=== PATIENT | male | born 1975 | race African-American/Black ===

== ENCOUNTER 2020-07-03 20:57 | Inpatient (IN) ==
[2020-07-03] MEDS ORDERED: ATROVENT HFA INHALER (PER PUFF-WITH SPACER) IH STA (21:02)
[2020-07-03] MEDS ORDERED: VENTOLIN HFA (PER PUFF-WITH SPACER) IH STA (21:02)
[2020-07-03] MEDS ORDERED: DECADRON IM STA (21:02)
[2020-07-03 21:32] LABS: BASOPHILS # (AUTO) 0.1 K/uL (0-0.2); BASOPHILS % (AUTO) 0.7 % (0.0-3.0); EOSINOPHILS % (AUTO) 0.1 % (0.0-7.0); HEMATOCRIT 50.3 % (42.0-52.0); HEMOGLOBIN 17.3 g/dl (14.0-18.0); IMMATURE GRANULOCYTE # (AUTO) 0.1 (0.0-1.0); IMMATURE GRANULOCYTE % (AUTO) 1.2 % (0.0-5.0); LYMPHOCYTES % (AUTO) 29.1 (10.0-50.0); MEAN CORPUSCULAR HEMOGLOBIN 29.7 pg (27.0-31.0); MEAN CORPUSCULAR HGB CONC 34.4 (31.8-35.4); MEAN CORPUSCULAR VOLUME 86.4 fl (80.0-94.0); MONOCYTES # (AUTO) 0.9 K/uL (0.4-2.0); MONOCYTES % (AUTO) 12.4 (0-10); NEUTROPHILS # (AUTO) 3.9 K/ul (2.0-6.9); NEUTROPHILS % (AUTO) 56.5 % (42.2-75.2); PLATELET COUNT 227 10^3/uL (140-440); RDW COEFFICIENT OF VARIATION 13.6 % (11.6-14.8); RED BLOOD COUNT 5.82 10^6/ul (4.70-6.10); WHITE BLOOD COUNT 6.94 K/ul (4.2-10.2)
--- NOTE | 2020-07-03 21:44 | DI ---
EXAM: PA and lateral views of the chest HISTORY: Cough COMPARISON: Chest Xray from 06/11/2020 FINDINGS: There are some increasing lung markings in the left base compared to earlier. There is johanna e mild increasing vascular congestion. Cardiac and mediastinal silhouettes show no acute abnormality. No acute osseous or soft tissue abnormalities. IMPRESSION: 1. Probable developing infiltrate in the left base. 2. Vascular congestion.
[2020-07-03 21:46] LABS: ALANINE AMINOTRANSFERASE 90.2 U/L (0-50); ALBUMIN 4.62 g/dL (3.5-5.0); ALKALINE PHOSPHATASE 107.5 U/L (38-126); ASPARTATE AMINO TRANSFERASE 62.7 U/L (17-59); BILIRUBIN,TOTAL 0.44 mg/dL (0.2-1.3); BLOOD UREA NITROGEN 16.6 mg/dL (9-20); CALCIUM 9.2 mg/dL (8.4-10.2); CARBON DIOXIDE 27.2 mmol/L (22-30.0); CHLORIDE 101.4 mmol/L (98-107); CREATINE KINASE 288.9 U/L (55-170); CREATININE 1.38 mg/dL (0.60-1.10); GLUCOSE 186.2 mg/dL (74-106); POTASSIUM 3.83 mmol/L (3.5-5.1); SODIUM 139.2 mmol/L (134.5-145); TOTAL PROTEIN 8.89 g/dL (6.3-8.2)
[2020-07-03 21:48] LABS: ABG PH 7.41 (7.35-7.45)
[2020-07-03] MEDS ORDERED: ROCEPHIN 1 GM/50 ML D5W 1 GM/50 ML BAG IV STA (21:50)
[2020-07-03 21:58] LABS: NT-PROBNP 22.6 pg/mL (0-124); TROPONIN I 0.017 ng/ml (0.0000-0.120)
[2020-07-03 22:01] LABS: CREATINE KINASE MB 1.97 ng/ml (0.0-2.38)
--- NOTE | 2020-07-03 22:25 | ED.PDOC ---
General ED Provider: Dr. JOHNNY CASTELLANOS Chief Complaint: Respiratory Complaint Stated Complaint: eagle had covid but not i am coughing up hathaway sputum and some chest congestion and cough Time Seen by Provider: 07/03/20 21:09 Mode of Arrival: Walk-In Information Source: Patient Primary Care Provider: ARMAND ART Nursing and Triage Documentation Reviewed and Agree: Yes Does patient meet sepsis criteria?: No System Inflammatory Response Syndrome: Not Applicable Sepsis Protocol: For patient's 13 years and over: Temp is 96.8 and below OR 101 and greater Pulse >90 BPM Resp >20/minute Acutely Altered Mental Status Are patient's symptoms suggestive of a new infection, such as: -Pneumonia -Skin, Soft Tissue -Endocarditis -UTI -Bone, Joint Infection -Implantable Device -Acute Abdominal Infection -Wound Infection -Meningitis -Blood Stream Catheter Infection -Unknown Respiratory Complaint Exam Respiratory Complaint/Exam Onset/Duration: several days Symptoms Are: Still present Timing: Intermittent Initial Severity: Mild Current Severity: Moderate Location: Chest Character: Reports Productive cough Aggravating: Reports URI Alleviating: Reports Bronchodilators Associated Signs and Symptoms: Reports Dyspnea, Chest pain and URI History of Healthcare-Acquired Pneumonia: No Home Oxygen Use: No Recent Stress Test: No Recent Echo/LV Function: No Current Antibiotic Use: No Current Asthma Medication Use: No Respiratory Distress: None Inadequate Respiratory Effort: No Dysphagia Present: No Stridor Present: No JVD Present: No Accessory Muscle Use: No Retractions: Not Present Diminished Breath Sounds: No Sinus Tenderness: None Grunting Respirations: No Kussmaul Respirations: No Differential Diagnoses: Pneumonia Non-Traumatic Chest Pain Syncope: EKG Performed Review of Systems Review Of Systems Constitutional: Reports No symptoms Eyes: Reports No symptoms Ears, Nose, Mouth, Throat: Reports No symptoms Respiratory: Reports Cough and Short of air Cardiac: Reports No symptoms GI: Reports No symptoms : Reports No symptoms Musculoskeletal: Reports No symptoms Skin: Reports No symptoms Neurological: Reports No symptoms Endocrine: Reports No symptoms Hematologic/Lymphatic: Reports No symptoms All Other Systems: Reviewed and Negative [facility] Social History Smoking and tobacco status: Former smoker Physical Exam Physical Exam Appearance: Reports Well-appearing Ill-appearing: None Pain Distress: None Eyes: Reports SHRAVAN, EOMI and Conjunctiva clear ENT: Reports Ears normal, Nose normal and Oropharynx normal Neck: Supple Respiratory: Reports Airway patent, Breath sounds equal, Crackles and Rhonchi Cardiovascular: Reports RRR, Pulses normal, No rub and No murmur GI/: Reports Soft, Nontender, No masses and Bowel sounds normal Musculoskeletal: Reports Normal strength, ROM intact, No edema and No calf tenderness Skin: Reports Warm, Dry and Normal color Neurological: Reports Sensation intact, Motor intact, Reflexes intact, Cranial nerves intact, Alert and Oriented Psychiatric: Reports Affect appropriate and Mood appropriate Interpretation Radiology Interpretation Radiology Interpretation By: Radiologist Radiology Results: Positive Exam Interpreted: CXR EKG Interpretation Time of EKG #1: 22:24 Rate: Normal Rhythm: Sinus Ectopy: None Chest [place]: NL ST Segment: Normal Interpretation: nsr Re-Evaluation Re-Evaluation Time of Re-Evaluation: 22:24 Status: Improved Vital Signs Stable: Yes Pain Level: 0 Appearance: NAD Lungs: Clear Skin: Warm and Dry Neuro: Alert and Oriented X3 CV: RRR Critical Care Note Critical Care Note Total Critical Care Time (mins): 0 Course Course Hematology/Chemistry: 07/03/20 21:23 07/03/20 21:23 Orders, Labs, Meds: Lab Review 07/03/20 07/03/20 07/03/20 21:15 21:23 21:23 WBC 6.94 RBC 5.82 Hgb 17.3 Hct 50.3 MCV 86.4 MCH 29.7 MCHC 34.4 RDW Coeff of Tejal 13.6 Plt Count 227 Immature Gran % (Auto) 1.2 Neut % (Auto) 56.5 Lymph % (Auto) 29.1 Drew % (Auto) 12.4 H Eos % (Auto) 0.1 Baso % (Auto) 0.7 Neut # (Auto) 3.9 Lymph # (Auto) 2.0 Drew # (Auto) 0.9 Eos # (Auto) 0.0 Baso # (Auto) 0.1 Immature Gran # (Auto) 0.1 Puncture Site Lr Base Excess 0.1 O2 Saturation 95.5 ABG pH 7.41 ABG pCO2 39.0 ABG pO2 78.0 L ABG HCO3 24.7 ABG Total CO2 25.9 H Matthew Test + Hemoglobin 0.7 Oxyhemoglobin 94.4 L Carboxyhemoglobin 2.5 H Total Hemoglobin 16.0 FiO2 % 21.0 Sodium 139.2 Potassium 3.83 Chloride 101.4 Carbon Dioxide 27.2 Anion Gap 14.43 BUN 16.6 Creatinine 1.38 H Estimated GFR (MDRD) 68.00 BUN/Creatinine Ratio 12.02 Glucose 186.2 H Lactic Acid Calcium 9.20 Ferritin 458.00 Total Bilirubin 0.44 AST 62.7 H ALT 90.2 H Alkaline Phosphatase 107.5 Total Creatine Kinase 288.9 H CK-MB (CK-2) 1.970 CK-MB (CK-2) % 0.6800 Troponin I 0.017 NT-Pro-B Natriuret Pep 22.600 Total Protein 8.89 H Albumin 4.62 Globulin 4.27 Albumin/Globulin Ratio 1.08 Procalcitonin D-Dimer Adenovirus (PCR) B. pertussis DNA (PCR) B.parapertussis DNA PCR C. pneumoniae DNA (PCR) Coronavirus OC43 (PCR) Coronavirus HKU1 (PCR) Coronavirus 229E (PCR) Coronavirus NL63 (PCR) Human Metapneumovir PCR Influenza Type A (PCR) Influenza B (RT-PCR) M. pneumoniae (PCR) Parainfluenza 1 (PCR) Parainfluenza 2 (PCR) Parainfluenza 3 (PCR) Parainfluenza 4 (PCR) RSV (PCR) Entero/Rhino (PCR) SARS-CoV-2 (PCR) 07/03/20 07/03/20 07/03/20 21:23 21:23 21:23 WBC RBC Hgb Hct MCV MCH MCHC RDW Coeff of Tejal Plt Count Immature Gran % (Auto) Neut % (Auto) Lymph % (Auto) Drew % (Auto) Eos % (Auto) Baso % (Auto) Neut # (Auto) Lymph # (Auto) Drew # (Auto) Eos # (Auto) Baso # (Auto) Immature Gran # (Auto) Puncture Site Base Excess O2 Saturation ABG pH ABG pCO2 ABG pO2 ABG HCO3 ABG Total CO2 Matthew Test Hemoglobin Oxyhemoglobin Carboxyhemoglobin Total Hemoglobin FiO2 % Sodium Potassium Chloride Carbon Dioxide Anion Gap BUN Creatinine Estimated GFR (MDRD) BUN/Creatinine Ratio Glucose Lactic Acid 1.33 Calcium Ferritin Total Bilirubin AST ALT Alkaline Phosphatase Total Creatine Kinase CK-MB (CK-2) CK-MB (CK-2) % Troponin I NT-Pro-B Natriuret Pep Total Protein Albumin Globulin Albumin/Globulin Ratio Procalcitonin D-Dimer 519.01 H Adenovirus (PCR) Not detected B. pertussis DNA (PCR) Not detected B.parapertussis DNA PCR Not detected C. pneumoniae DNA (PCR) Not detected Coronavirus OC43 (PCR) Not detected Coronavirus HKU1 (PCR) Not detected Coronavirus 229E (PCR) Not detected Coronavirus NL63 (PCR) Not detected Human Metapneumovir PCR Not detected Influenza Type A (PCR) Not detected Influenza B (RT-PCR) Not detected M. pneumoniae (PCR) Not detected Parainfluenza 1 (PCR) Not detected Parainfluenza 2 (PCR) Not detected Parainfluenza 3 (PCR) Not detected Parainfluenza 4 (PCR) Not detected RSV (PCR) Not detected Entero/Rhino (PCR) Not detected SARS-CoV-2 (PCR) Detected H 07/03/20 21:23 WBC RBC Hgb Hct MCV MCH MCHC RDW Coeff of Tejal Plt Count Immature Gran % (Auto) Neut % (Auto) Lymph % (Auto) Drew % (Auto) Eos % (Auto) Baso % (Auto) Neut # (Auto) Lymph # (Auto) Drew # (Auto) Eos # (Auto) Baso # (Auto) Immature Gran # (Auto) Puncture Site Base Excess O2 Saturation ABG pH ABG pCO2 ABG pO2 ABG HCO3 ABG Total CO2 Matthew Test Hemoglobin Oxyhemoglobin Carboxyhemoglobin Total Hemoglobin FiO2 % Sodium Potassium Chloride Carbon Dioxide Anion Gap BUN Creatinine Estimated GFR (MDRD) BUN/Creatinine Ratio Glucose Lactic Acid Calcium Ferritin Total Bilirubin AST ALT Alkaline Phosphatase Total Creatine Kinase CK-MB (CK-2) CK-MB (CK-2) % Troponin I NT-Pro-B Natriuret Pep Total Protein Albumin Globulin Albumin/Globulin Ratio Procalcitonin < 0.05 D-Dimer Adenovirus (PCR) B. pertussis DNA (PCR) B.parapertussis DNA PCR C. pneumoniae DNA (PCR) Coronavirus OC43 (PCR) Coronavirus HKU1 (PCR) Coronavirus 229E (PCR) Coronavirus NL63 (PCR) Human Metapneumovir PCR Influenza Type A (PCR) Influenza B (RT-PCR) M. pneumoniae (PCR) Parainfluenza 1 (PCR) Parainfluenza 2 (PCR) Parainfluenza 3 (PCR) Parainfluenza 4 (PCR) RSV (PCR) Entero/Rhino (PCR) SARS-CoV-2 (PCR) Orders Category Date Time Status ABG DRAW REQUEST Stat CARDIO 07/03/20 21:03 Completed EKG-(ED ONLY) Stat CARDIO 07/03/20 21:02 Completed METERED DOSE INHALATION Routine CARDIO 07/03/20 21:04 Completed ED ROR ENGINEER APPLIED .ONCE EMERGENCY 07/03/20 21:02 Active ED IV/MEDIPORT/POWERPORT .ONCE EMERGENCY 07/03/20 21:51 Active ABG COOX Stat LAB 07/03/20 21:15 Completed BLOOD CULTURE (ED ONLY) Stat LAB 07/03/20 21:23 Received CBC W/ AUTO DIFF Stat LAB 07/03/20 21:23 Completed COMPREHENSIVE METABOLIC PANEL Stat LAB 07/03/20 21:23 Completed CREATINE KINASE Stat LAB 07/03/20 21:23 Completed D-DIMER Stat LAB 07/03/20 21:23 Completed FERRITIN Stat LAB 07/03/20 21:23 Completed LACTIC ACID Stat LAB 07/03/20 21:23 Completed NT-PROBNP Stat LAB 07/03/20 21:23 Completed PROCALCITONIN Stat LAB 07/03/20 21:23 Completed RESPIRATORY PANEL 2.1 (PCR) Stat LAB 07/03/20 21:23 Completed TROPONIN I Stat LAB 07/03/20 21:23 Completed 0.9 % Sodium Chloride [Saline Flush] MEDS 07/03/20 21:51 Active 1 syr IVF PRN PRN Albuterol Inhaler(with Spacer) [Ventolin Hfa (Per Puff- MEDS 07/03/20 21:02 Discontinued with Spacer)] 2 puff IH ONCE STA Ceftriaxone/D5w 1 gm Premix [Rocephin 1 gm/50 ml D5w] MEDS 07/03/20 21:50 Discontinued 1 gm in 50 ml IV ONCE Dexamethasone Sod Phosphate [Decadron] MEDS 07/03/20 21:02 Discontinued 6 mg IM ONCE STA Ipratropium Inhaler(Spacer) [Atrovent Hfa Inhaler (Per MEDS 07/03/20 21:02 Discontinued Puff-with Spacer)] 2 puff IH ONCE STA CHEST, 2 VIEWS PA & LAT Stat RADS 07/03/20 21:04 Completed Medications Generic Name Dose Route Start Last Admin Trade Name Freq PRN Reason Stop Dose Admin Sodium Chloride 1 syr 02/25/21 21:51 0.9% Sodium Chloride 10 Ml Disp.Syrin IVF PRN PRN To flush IV Discontinued Medications Generic Name Dose Route Start Last Admin Trade Name Mila PRN Reason Stop Dose Admin Albuterol Sulfate 2 puff 07/03/20 21:02 07/03/20 21:50 Albuterol Sulfate (Ventolin Hfa) 18 Gm 1 Puff With Spacer IH 07/03/20 21:03 2 puff ONCE STA Administration Dexamethasone Sodium Phosphate 6 mg 07/03/20 21:02 07/03/20 21:25 Dexamethasone Sod Phos 10 Mg/Ml Inj IM 07/03/20 21:03 6 mg ONCE STA Administration CEFTRIAXONE/D5W 1 GM PREMIX 1 gm in 50 mls @ 75 mls/hr 07/03/20 21:50 07/03/20 22:03 Rocephin 1 Gm/50 Ml D5w IV 07/03/20 22:29 75 mls/hr ONCE STA Administration Ipratropium [place] 2 puff 07/03/20 21:02 07/03/20 21:50 Ipratropium [place] 12.9 Gm Hfa Inhaler Per Puff With Spacer IH 07/03/20 21:03 2 puff ONCE STA Administration Vital Signs: Temp Pulse Resp BP Pulse Ox 07/03/20 20:58 96.3 F L 109 H 24 169/110 H 95 Discharge Plan Discharge Patient Disposition: ADMITTED INPATIENT Discharge Problem: COVID-19, Pneumonia Prescriptions: No Action hydrochlorothiazide 12.5 MG tablet 12.5 mg PO DAILY RF: 0 ED Provider: JOHNNY CASTELLANOS Condition: Good Physician Progress Note: []
[2020-07-03] MEDS ORDERED: REMDESIVIR 200 MG in SODIUM CHLORIDE 250 ML IV ONE (22:37)
[2020-07-03 23:39] VITALS: BMI 41.5
[2020-07-04] MEDS ORDERED: COZAAR PO STA (00:20)
[2020-07-04] MEDS ORDERED: PROCARDIA XL PO STA (00:20)
[2020-07-04] MEDS: DOXY-100 100 MG in SODIUM CHLORIDE 100 ML IV SCH ×3 (00:26→21:29)
[2020-07-04 04:53] LABS: BASOPHILS % (AUTO) 0.5 % (0.0-3.0); HEMATOCRIT 48.5 % (42.0-52.0); HEMOGLOBIN 16.4 g/dl (14.0-18.0); IMMATURE GRANULOCYTE # (AUTO) 0.1 (0.0-1.0); IMMATURE GRANULOCYTE % (AUTO) 1.3 % (0.0-5.0); LYMPHOCYTES # (AUTO) 1.3 K/uL (0.60-3.4); LYMPHOCYTES % (AUTO) 21.3 (10.0-50.0); MEAN CORPUSCULAR HEMOGLOBIN 29.6 pg (27.0-31.0); MEAN CORPUSCULAR HGB CONC 33.8 (31.8-35.4); MEAN CORPUSCULAR VOLUME 87.5 fl (80.0-94.0); MONOCYTES # (AUTO) 0.4 K/uL (0.4-2.0); MONOCYTES % (AUTO) 6.3 (0-10); NEUTROPHILS # (AUTO) 4.4 K/ul (2.0-6.9); NEUTROPHILS % (AUTO) 70.6 % (42.2-75.2); PLATELET COUNT 218 10^3/uL (140-440); RDW COEFFICIENT OF VARIATION 13.7 % (11.6-14.8); RED BLOOD COUNT 5.54 10^6/ul (4.70-6.10); WHITE BLOOD COUNT 6.24 K/ul (4.2-10.2)
[2020-07-04] MEDS: VENTOLIN HFA (PER PUFF-WITH SPACER) IH SCH ×3 (04:53→20:15)
[2020-07-04 05:05] LABS: ALANINE AMINOTRANSFERASE 85.4 U/L (0-50); ALBUMIN 4.32 g/dL (3.5-5.0); ALKALINE PHOSPHATASE 74.9 U/L (38-126); BILIRUBIN,TOTAL 0.43 mg/dL (0.2-1.3); BLOOD UREA NITROGEN 15.4 mg/dL (9-20); CALCIUM 8.97 mg/dL (8.4-10.2); CARBON DIOXIDE 29.3 mmol/L (22-30.0); CHLORIDE 102.1 mmol/L (98-107); CREATININE 1.35 mg/dL (0.60-1.10); GLUCOSE 165.5 mg/dL (74-106); POTASSIUM 4.82 mmol/L (3.5-5.1); TOTAL PROTEIN 8.28 g/dL (6.3-8.2)
[2020-07-04] MEDS: PEPCID PO SCH ×2 (05:35→17:27)
[2020-07-04] MEDS ORDERED: REMDESIVIR 200 MG in SODIUM CHLORIDE 250 ML IV ONE (07:30)
[2020-07-04 07:34] LABS: PROTHROMBIN TIME 9.8 SEC (9.3-11.0)
[2020-07-04] MEDS: HYDROCHLOROTHIAZIDE PO SCH (08:22)
[2020-07-04] MEDS: VITAMIN D PO SCH (08:22)
[2020-07-04] MEDS: PROCARDIA XL PO SCH (08:23)
[2020-07-04] MEDS: ZINC-220 PO SCH (08:23)
[2020-07-04] MEDS: COZAAR PO SCH (08:23)
[2020-07-04] MEDS: SYMBICORT 160-4.5 MCG INHALER IH SCH ×2 (08:24→20:40)
[2020-07-04] MEDS: DECADRON IM SCH (08:24)
[2020-07-04] MEDS: LOVENOX SUBCUT SCH (08:27)
[2020-07-04] MEDS ORDERED: VENTOLIN HFA (PER PUFF-WITH SPACER) IH SCH (09:00)
[2020-07-04] MEDS ORDERED: FLUZONE QUAD 2020-2021 SYRINGE IM ONE (11:36)
[2020-07-04] MEDS: ROCEPHIN 1 GM/50 ML D5W 1 GM/50 ML BAG IV SCH (20:40)
[2020-07-05] MEDS: VENTOLIN HFA (PER PUFF-WITH SPACER) IH SCH ×3 (05:10→19:50)
[2020-07-05] MEDS: PEPCID PO SCH ×2 (06:01→17:42)
[2020-07-05] MEDS: VITAMIN D PO SCH (10:30)
[2020-07-05] MEDS: DECADRON IM SCH (10:31)
[2020-07-05] MEDS: HYDROCHLOROTHIAZIDE PO SCH (10:31)
[2020-07-05] MEDS: ZINC-220 PO SCH (10:31)
[2020-07-05] MEDS: COZAAR PO SCH (10:31)
[2020-07-05] MEDS: PROCARDIA XL PO SCH (10:31)
[2020-07-05] MEDS: SYMBICORT 160-4.5 MCG INHALER IH SCH ×2 (10:32→21:06)
[2020-07-05] MEDS: LOVENOX SUBCUT SCH (10:32)
[2020-07-05] MEDS: DOXY-100 100 MG in SODIUM CHLORIDE 100 ML IV SCH ×2 (10:32→21:01)
--- NOTE | 2020-07-05 11:10 | DI ---
EXAM: Frontal and lateral views of the chest. COMPARISON: Chest radiograph 07/03/2020. HISTORY: Follow-up pneumonia/COVID-19 infection. FINDINGS: Normal heart size. Mild ground-glass opacities at the lung bases and lung periphery bilaterally, not significantly vargas ed in appearance to the prior exam. No pleural effusion or pneumothorax. IMPRESSION: No significant change of lung findings compatible with COVID-19 pneumonia/lung injury, overall mild i n appearance.
[2020-07-05] MEDS ORDERED: REMDESIVIR 100 MG in SODIUM CHLORIDE 250 ML IV SCH (12:00)
[2020-07-05] MEDS: ROCEPHIN 1 GM/50 ML D5W 1 GM/50 ML BAG IV SCH (20:07)
[2020-07-05] MEDS: TUSSIONEX PO PRN (21:01)
[2020-07-06] MEDS: VENTOLIN HFA (PER PUFF-WITH SPACER) IH SCH ×3 (05:10→19:50)
[2020-07-06] MEDS: PEPCID PO SCH ×2 (05:54→16:32)
[2020-07-06 08:39] LABS: BASOPHILS % (AUTO) 0.3 % (0.0-3.0); EOSINOPHILS % (AUTO) 0.2 % (0.0-7.0); HEMATOCRIT 45.9 % (42.0-52.0); HEMOGLOBIN 15.5 g/dl (14.0-18.0); IMMATURE GRANULOCYTE # (AUTO) 0.1 (0.0-1.0); IMMATURE GRANULOCYTE % (AUTO) 1.3 % (0.0-5.0); LYMPHOCYTES % (AUTO) 30.2 (10.0-50.0); MEAN CORPUSCULAR HEMOGLOBIN 29.3 pg (27.0-31.0); MEAN CORPUSCULAR HGB CONC 33.8 (31.8-35.4); MEAN CORPUSCULAR VOLUME 86.8 fl (80.0-94.0); MONOCYTES % (AUTO) 9.9 (0-10); NEUTROPHILS # (AUTO) 5.7 K/ul (2.0-6.9); NEUTROPHILS % (AUTO) 58.1 % (42.2-75.2); PLATELET COUNT 264 10^3/uL (140-440); RDW COEFFICIENT OF VARIATION 13.7 % (11.6-14.8); RED BLOOD COUNT 5.29 10^6/ul (4.70-6.10); WHITE BLOOD COUNT 9.77 K/ul (4.2-10.2)
[2020-07-06 08:51] LABS: ALANINE AMINOTRANSFERASE 96.1 U/L (0-50); ALBUMIN 3.94 g/dL (3.5-5.0); ALKALINE PHOSPHATASE 63.9 U/L (38-126); ASPARTATE AMINO TRANSFERASE 58.5 U/L (17-59); BILIRUBIN,TOTAL 0.5 mg/dL (0.2-1.3); BLOOD UREA NITROGEN 19.3 mg/dL (9-20); CALCIUM 8.48 mg/dL (8.4-10.2); CARBON DIOXIDE 29.9 mmol/L (22-30.0); CHLORIDE 101.8 mmol/L (98-107); CREATININE 1.32 mg/dL (0.60-1.10); GLUCOSE 101.8 mg/dL (74-106); POTASSIUM 3.82 mmol/L (3.5-5.1); SODIUM 138.5 mmol/L (134.5-145); TOTAL PROTEIN 7.6 g/dL (6.3-8.2)
[2020-07-06] MEDS: SYMBICORT 160-4.5 MCG INHALER IH SCH ×2 (08:51→20:00)
[2020-07-06] MEDS: LOVENOX SUBCUT SCH (08:52)
[2020-07-06] MEDS: HYDROCHLOROTHIAZIDE PO SCH (08:53)
[2020-07-06] MEDS: VITAMIN D PO SCH (08:53)
[2020-07-06] MEDS: ZINC-220 PO SCH (08:53)
[2020-07-06] MEDS: COZAAR PO SCH (08:54)
[2020-07-06] MEDS: PROCARDIA XL PO SCH (08:54)
[2020-07-06] MEDS: DECADRON IM SCH (08:55)
[2020-07-06] MEDS: DOXY-100 100 MG in SODIUM CHLORIDE 100 ML IV SCH ×2 (08:57→21:00)
[2020-07-06] MEDS: ROCEPHIN 1 GM/50 ML D5W 1 GM/50 ML BAG IV SCH (20:00)
[2020-07-06] MEDS: TUSSIONEX PO PRN (21:46)
[2020-07-07] MEDS: VENTOLIN HFA (PER PUFF-WITH SPACER) IH SCH ×2 (05:00→14:04)
[2020-07-07] MEDS: PEPCID PO SCH ×2 (05:37→17:14)
[2020-07-07 05:46] LABS: BASOPHILS # (AUTO) 0.1 K/uL (0-0.2); BASOPHILS % (AUTO) 0.6 % (0.0-3.0); EOSINOPHILS % (AUTO) 0.3 % (0.0-7.0); HEMATOCRIT 44.9 % (42.0-52.0); HEMOGLOBIN 15.5 g/dl (14.0-18.0); IMMATURE GRANULOCYTE # (AUTO) 0.2 (0.0-1.0); IMMATURE GRANULOCYTE % (AUTO) 2.2 % (0.0-5.0); LYMPHOCYTES # (AUTO) 2.8 K/uL (0.60-3.4); LYMPHOCYTES % (AUTO) 27.4 (10.0-50.0); MEAN CORPUSCULAR HEMOGLOBIN 29.9 pg (27.0-31.0); MEAN CORPUSCULAR HGB CONC 34.5 (31.8-35.4); MEAN CORPUSCULAR VOLUME 86.5 fl (80.0-94.0); MONOCYTES % (AUTO) 9.5 (0-10); NEUTROPHILS # (AUTO) 6.2 K/ul (2.0-6.9); PLATELET COUNT 278 10^3/uL (140-440); RDW COEFFICIENT OF VARIATION 13.7 % (11.6-14.8); RED BLOOD COUNT 5.19 10^6/ul (4.70-6.10); WHITE BLOOD COUNT 10.25 K/ul (4.2-10.2)
[2020-07-07 06:00] LABS: ALANINE AMINOTRANSFERASE 95.7 U/L (0-50); ALBUMIN 4.1 g/dL (3.5-5.0); ALKALINE PHOSPHATASE 64.6 U/L (38-126); ASPARTATE AMINO TRANSFERASE 55.4 U/L (17-59); BILIRUBIN,TOTAL 0.53 mg/dL (0.2-1.3); BLOOD UREA NITROGEN 20.6 mg/dL (9-20); CALCIUM 8.67 mg/dL (8.4-10.2); CARBON DIOXIDE 27.7 mmol/L (22-30.0); CHLORIDE 101.5 mmol/L (98-107); CREATININE 1.29 mg/dL (0.60-1.10); SODIUM 136.4 mmol/L (134.5-145); TOTAL PROTEIN 7.9 g/dL (6.3-8.2)
[2020-07-07] MEDS ORDERED: MEDROL DOSEPAK PO SCH ×5 (06:30→09:30)
[2020-07-07] MEDS: VITAMIN D PO SCH (08:48)
[2020-07-07] MEDS: HYDROCHLOROTHIAZIDE PO SCH (08:48)
[2020-07-07] MEDS: ZINC-220 PO SCH (08:49)
[2020-07-07] MEDS: COZAAR PO SCH (08:49)
[2020-07-07] MEDS: PROCARDIA XL PO SCH (08:49)
[2020-07-07] MEDS: LOVENOX SUBCUT SCH (08:50)
[2020-07-07] MEDS: SYMBICORT 160-4.5 MCG INHALER IH SCH (08:51)
[2020-07-07] MEDS: DOXY-100 100 MG in SODIUM CHLORIDE 100 ML IV SCH (08:54)
[2020-07-07] MEDS: MEDROL DOSEPAK PO SCH ×3 (09:34→17:13)
--- NOTE | 2020-07-07 10:31 | DI ---
EXAM: CHEST FRONTAL AND LATERAL VIEWS HISTORY: Pneumonia, follow-up. COMPARISON: 07/05/2020 FINDINGS: Heart size and mediastinal contour within normal limits. No acute infiltrates. Tory l vascularity with no pleural fluid or pneumothorax. The bony thorax has no acute finding. IMPRESSION: No definite consolidated pneumonia currently seen radiographically.
[2020-07-07 14:14] VITALS: BP 130/80; TEMP 97.8
--- NOTE | 2020-08-04 11:53 | HP ---
DISCUSSION: This is a very pleasant 44-year-old black male, who was seen in the Emergency Department for cough. For several days he had had cough productive of martin sputum associated with some chest congestion and exertional shortness of breath. The patient gave a history of having the Covid virus, tested positive. There is some dispute whether or not he was out of quarantine. In the Emergency Department, he was found to have evidence of pneumonia. Because of his history of recent Covid infection, we decided to admit the patient for evaluation and treatment of such. PAST MEDICAL HISTORY: MEDICATIONS: Hydrochlorothiazide PAST MEDICAL HISTORY: History of hypertension SOCIAL HISTORY: He is a previous smoker. Denies any alcohol or ilicit drug use noted. FAMILY HISTORY: No familial tendancies. REVIEW OF SYSTEMS: Mild headache. Denies any hemoptysis, denies any abdominal pain, blood in the stool, urinary symptoms or seizures. PHYSICAL EXAMINATION: V/S: Temperature 97.3, pulse 100, respiratory rate 24, Blood pressure 129/110. Oxygen saturation 95%. HEENT: Pupils are round. NECK: Supple. CHEST: Bilateral rhonchi and rales. CARDIOVASCULAR: Regular rate and rhythm. ABDOMEN: Soft, nontender. EXTREMITIES: Distal extremities without cyanosis or edema. ASSESSMENT: 1. Pneumonia, recent Covid infection. 2. Hypertension. PLAN: 1. Admission. 2. IV fluids. 3. Broad spectrum antibiotics. 4. Steroids. 5. Will talk to him about Remdesivir. 6. Please see orders. MTDD
--- NOTE | 2020-08-04 13:08 | DS ---
PRINCIPAL DIAGNOSIS: 1. PNEUMONIA 2. COVID-19 INFECTION 3. HYPERTENSION DISCUSSION: This is a very pleasant 44-year-old black male, who was seen in the Emergency Department for cough. For several days he had had cough productive of martin sputum associated with some chest congestion and exertional shortness of breath. The patient gave a history of having the Covid virus, tested positive. There is some dispute whether or not he was out of quarantine. In the Emergency Department, he was found to have evidence of pneumonia. Because of his history of recent Covid infection, we decided to admit the patient for evaluation and treatment of such. CLINICAL COURSE: The patient is admitted to the hospitalist's service. We continued antibiotics, broad-spectrum as well as steroids. Because of his history of Covid virus, there was some question of whether or not he was truly in or out of quarantine. There was a dispute about that however we talked to him about Remdesivir and he refused this. With steroids and breathing treatments, his followup chest x-ray improved. His oxygenation improved. His blood pressure stabilized and at this point the patient was discharged. He was discharged with antibiotics as well as antihypertensive regimen. He will followup in the clinic next week. MICKY
== END 2020-07-07 17:25 | disposition home or self-care (01) | DRG 179 ==
LOC: ED 20:57 → SCU 22:35
PROVIDERS: ADMIT Family Medicine; ATTEND Family Medicine
DX: Z20.822 Contact with and (suspected) exposure to COVID-19; R06.02 Shortness of breath; R05 Cough; R07.9 Chest pain, unspecified; I10 Essential (primary) hypertension; U07.1 COVID-19